=== PATIENT | female | born 1990 ===

== ENCOUNTER 2024-08-06 13:51 | Emergency (ER) | payer SELFPAY ==
[2024-08-06] MEDS: EPINEPHrine 1 MG/ML SDV ONE (14:05)
[2024-08-06] MEDS: Dexamethasone 4 MG/ML SDV IVPUSH ONE (14:11)
[2024-08-06] MEDS: Famotidine 20 MG/2 ML SDV IVPUSH ONE (14:11)
[2024-08-06] MEDS: diphenhydrAMINE 50 MG/ML SDV IVPUSH ONE (14:11)
[2024-08-06] MEDS: Sodium Chloride 0.9% 1,000 ML IV ONE (14:18)
== END 2024-08-06 16:06 | disposition home or self-care (01) ==
LOC: DL.ED 13:51
DX: T63.461A Toxic effect of venom of wasps, accidental (unintentional), initial encounter (principal)
CPT/HCPCS: 96361; 96374; 96375; 99281-25; 99282; J0171; J1100; J1200; J3490; J7030

== ENCOUNTER 2025-10-20 13:39 | Emergency (ER) | payer BC, MEDICAID ==
[2025-10-20 14:45] LABS: APPEARANCE,URINE CLEAR (CLEAR); GLUCOSE,URINE NEGATIVE (NEGATIVE); OCCULT BLOOD,URINE NEGATIVE (NEGATIVE)
== END 2025-10-20 14:59 | disposition home or self-care (01) ==
LOC: DL.ED 13:39
DX: R10.9 Unspecified abdominal pain (principal); Z90.710 Acquired absence of both cervix and uterus
CPT/HCPCS: 81003; 99283; 99284